=== PATIENT | female | born 1940 | race Caucasian/White ===

== ENCOUNTER → 2018-02-18 | Outpatient (CLI) | payer MEDICARE ==
[~2018-02-18] MED LIST: ADULT LOW DOSE81 MG PO; AMOXICILLIN 50500 M1; ARTHRITIS PAIN650 M2 PO; COLACE100 MG PO; GABAPENTIN PO; GLUCOPHAGE1000 MG PO; LANTUS SC; MOBIC15 MG PO; NEURONTIN; NORCO 5-325 TA1 EACH PO; NOVOLOG100 UNIT/1 SQ; PREVACID15 MG PO; SIMVASTATIN40 MG PO; SYNTHROID75 MCG PO; TRAMADOL 50 MG50 MG PO; VITAMIN D 5050000 I1 PO; VITAMIN D32000 UNIT PO; VYTORIN 10-401 EACH PO; ZOFRAN ODT4 MG PO; ZOFRAN4 MG PO
== END ==
LOC: M.RAD 15:05
DX: M25.512 Pain in left shoulder (principal); L30.9 Dermatitis, unspecified